=== PATIENT | male | born 1945 | race Caucasian/White ===

== ENCOUNTER → 2021-08-23 | Outpatient (CLI) | payer MEDICARE, OTHER ==
[~2021-08-23] MED LIST: ACET500 PO; ALBU90OI; ASPI81EC PO; ATEN25 PO; EXCEDRIN MIGRAINE; FLEC100; HYDMOR2 PO; HYDR1TAB94 PO; IPRAOI; LISI20 PO; PRED20; TOPI100 PO; TOPI50 PO; VERA240ERB PO
== END ==
LOC: LAB 11:09 → LAB SHORT 11:09
DX: D48.5 Neoplasm of uncertain behavior of skin (principal); L81.4 Other melanin hyperpigmentation; L57.0 Actinic keratosis
CPT/HCPCS: 88305

== ENCOUNTER → 2022-02-28 | Outpatient (CLI) | payer MEDICARE | END | disposition home or self-care (01) | LOC: PLD 11:09 → LAB SHORT 11:09 | DX: D22.5 Melanocytic nevi of trunk (principal); L82.1 Other seborrheic keratosis | CPT/HCPCS: 88305 ==